=== PATIENT | male | born 1980 | race American Indian/Alaskan Native ===

== ENCOUNTER 2019-10-03 06:55 | Outpatient (CLI) | payer OTHER ==
--- NOTE | 2019-10-03 08:40 | Magnetic Resonance Report ---
MRI right knee without contrast INDICATION: M25.551 PAIN IN RIGHT KNEE. COMPARISON: None FINDINGS: No acute osseous abnormality or significant DJD. No appreciable joint effusion or poplitea l fossa cyst. There is a discoid lateral meniscus with radial tear in the body. The internal substance of the media l meniscal body is also grossly abnormal extending into both the frontal and posterior horns. There m ay be tear exits peripherally (i.e. red-red exit). The medial meniscus is unremarkable. The collateral ligaments, cruciate ligaments, and extensor mechanism are all intact. IMPRESSION: Discoid lateral meniscus with radial tear in the body and probable peripheral tear exit as above. Signer Name: Mendoza Back MD Signed: 10/03/2019 8:36 AM Workstation Name: [id number]
== END 2019-10-03 06:56 | disposition home or self-care (01) ==
LOC: MRI 06:55
PROVIDERS: ATTEND Orthopaedic Surgery
DX: S83.281A Other tear of lateral meniscus, current injury, right knee, initial encounter (principal); W45.8XXA Other foreign body or object entering through skin, initial encounter; Y93.89 Activity, other specified; Y92.89 Other specified places as the place of occurrence of the external cause; Y99.8 Other external cause status
CPT/HCPCS: 73721